=== PATIENT | female | born 1975 | race Caucasian/White ===

== ENCOUNTER 2017-05-24 07:35 | Outpatient (CLI) | payer OTHER ==
--- NOTE | 2017-05-24 13:09 | Ultrasound Report ---
PELVIC ULTRASOUND: 05/24/2017 HISTORY: Right ovarian cyst. TECHNIQUE: Real-time scanning by the x ray inspector with saved static images reviewed. Transabdominal approach for global evaluation, transvaginal approach for detailed assessment of the ovaries and adne xal structures. LAST MENSTRUAL PERIOD: 05/09/2017 FINDINGS: Uterus: 8.2 x 4.6 x 5.4 cm, 107 mL volume. Retroverted configuration. Two subcentimeter fibroids a re present, each 6 mm in dimension, one anteriorly mid body and the other posteriorly mid body. Endometrial echo thickness 3.4 mm, normal. Right ovary: 5.1 x 3.0 x 4.1 cm, volume 33 mL. Hemorrhagic cyst 3.9 x 2.6 x 3.7 cm. Left ovary: 2.8 x 1.1 x 1.6 cm, volume 2.6 mL. Free fluid: None. IMPRESSION: MINOR MYOMATOUS CHANGES OF THE UTERUS. HEMORRHAGIC RIGHT OVARIAN CYST 3.9 X 2.6 X 3.7 C M. OTHERWISE, NEGATIVE PELVIC ULTRASOUND. JOB #: [id number] EXT JOB #:[id number]
== END 2017-05-24 07:36 | disposition home or self-care (01) ==
LOC: DI 07:35
PROVIDERS: ATTEND Obstetrics & Gynecology
DX: N83.201 Unspecified ovarian cyst, right side (principal); D25.9 Leiomyoma of uterus, unspecified
CPT/HCPCS: 76830; 76856

== ENCOUNTER 2017-07-06 17:01 | Outpatient (CLI) | payer OTHER ==
--- NOTE | 2017-07-07 09:23 | Ultrasound Report ---
DATE OF SERVICE: 07/06/2017 PELVIC ULTRASOUND: 07/06/2017 CLINICAL INDICATION: Followup right ovarian cyst. COMPARISON: 05/24/2017 TECHNIQUE: Transabdominal pelvic ultrasound performed for global evaluation. Transvaginal pelvic ultrasound performed for detailed evaluation. Real-time scanning performed and static images obtained. FINDINGS: The uterus is retroverted, measuring 10.0 x 6.2 x 4.6 cm. The endometrial echo complex measures 6 mm. No focal myometrial lesion is seen. The right ovary measures 3.6 x 1.5 x 1.5 cm, and appears unremarkable. Previously noted right ovarian hemorrhagic cyst has resolved. The left ovary measures 3.8 x 2.6 x 2.2 cm, and demonstrates a follicle. No free fluid is present. IMPRESSION: Resolution of hemorrhagic right ovarian cyst. Normal pelvic ultrasound. TD: 07/07/2017 10:22
== END 2017-07-06 17:02 | disposition home or self-care (01) ==
LOC: DI 17:01
PROVIDERS: ATTEND Obstetrics & Gynecology
DX: N83.201 Unspecified ovarian cyst, right side (principal)
CPT/HCPCS: 76830; 76856